=== PATIENT | female | born 1970 | race Caucasian/White ===

== ENCOUNTER 2020-11-01 14:45 | Outpatient (CLI) | payer OTHER | END 2020-11-01 14:46 | disposition home or self-care (01) | LOC: CTENTCT 14:45 | PROVIDERS: ATTEND Otolaryngology Plastic Surgery within the Head & Neck | DX: J32.9 Chronic sinusitis, unspecified (principal) | CPT/HCPCS: 70486 ==

== ENCOUNTER 2021-01-22 10:29 | Outpatient (CLI) | payer OTHER ==
[~2021-01-22 10:29] MED LIST: Iopamidol-370 76% 500 ML 1 ML ONE
== END 2021-01-22 10:30 | disposition home or self-care (01) ==
LOC: BICCT 10:29
PROVIDERS: ATTEND Otolaryngology Plastic Surgery within the Head & Neck
DX: R06.1 Stridor (principal); J38.6 Stenosis of larynx; J39.8 Other specified diseases of upper respiratory tract
CPT/HCPCS: 70491; Q9967